=== PATIENT | female | born 1955 | race African-American/Black ===

== ENCOUNTER 2017-05-13 09:16 | Outpatient (CLI) | payer OTHER ==
--- NOTE | 2017-05-13 10:20 | MMO ---
BILATERAL MAMMOGRAMS: DATE: 05/13/17 HISTORY: Screening mammography. COMPARISON: 07/22/11. FINDINGS: Heterogeneously dense fibroglandular tissue is again demonstrated. There is no dominant mass or suspi cious calcifications. The study was evaluated with the assistance of computer-aided detection. IMPRESSION: BIRADS 1: Negative Suggest routine follow-up. POS: [facility]
== END 2017-05-13 09:17 | disposition home or self-care (01) ==
LOC: SCSMAMMO 09:16
DX: Z12.31 Encounter for screening mammogram for malignant neoplasm of breast (principal)
CPT/HCPCS: 77067

== ENCOUNTER 2020-06-20 09:10 | Outpatient (CLI) | payer OTHER | END 2020-06-20 09:11 | disposition home or self-care (01) | LOC: BICMAMMO 09:10 | PROVIDERS: ATTEND Internal Medicine | DX: Z12.31 Encounter for screening mammogram for malignant neoplasm of breast (principal) | CPT/HCPCS: 77063; 77067 ==

== ENCOUNTER 2021-07-03 09:18 | Outpatient (CLI) | payer OTHER | END 2021-07-03 09:19 | disposition home or self-care (01) | LOC: BICMAMMO 09:18 | PROVIDERS: ATTEND Family Medicine | DX: Z12.31 Encounter for screening mammogram for malignant neoplasm of breast (principal) | CPT/HCPCS: 77063; 77067 ==

== ENCOUNTER 2023-08-06 11:21 | Outpatient (CLI) | payer MEDICARE | END 2023-08-06 11:22 | disposition home or self-care (01) | LOC: BICMAMMO 11:21 | PROVIDERS: ATTEND Nurse Practitioner Acute Care | DX: Z12.31 Encounter for screening mammogram for malignant neoplasm of breast (principal) | CPT/HCPCS: 77063; 77067 ==